=== PATIENT | female | born 1965 | race Caucasian/White ===

== ENCOUNTER → 2016-06-17 | Day surgery (SDC) | payer BC ==
[~2016-06-17] VITALS: Ht 170.2 cm; Wt 64.4 kg
[2016-06-17] VITALS (15 sets, daily range): BP systolic 114–148; BP diastolic 61–86
[~2016-06-17] MED LIST: D5 1/2NS 1,000 ML IV SCH; Dexamethasone 4mg/ml vial ONE; Glycopyrrolate 0.2mg/ml 1ml Vial ONE; HYDROmorphone 1mg/ml Carpuject SUBQ PRN; Hydromorphone 0.5mg/0.5ml inj IVP PRN; LR 1000ml ONE; Midazolam 2mg/2ml Inj ONE; NS Irrig 1000ml IRRIG ONE; NS Irrig 1000ml ONE; Neostigmine 1mg/ml 10ml Inj ONE; Norco 5mg/325mg tab ORAL PRN; Propofol 10mg/ml 20ml IV ONE; ProvayBlue 5mg/ml 10ml amp INJ ONE; Ropivacaine 5mg/ml Vial 20ml INJ ONE; Succinylcholine 20mg/ml 10ml vial ONE; Tylenol #3 tab (300mg/30mg) ORAL PRN; VITAMIN B125000 MCG PO; VITAMIN D250000 UNI1 ORAL; Zemuron 50mg/5ml Inj IV ONE; cefOXitin Sod 2 GM in D5W 110 ML IVPB ONE; fentaNYL 100 mcg/2 mL IV ONE
--- NOTE | 2016-06-17 08:03 | Pre-Procedure Note/Attestation ---
Pre-Procedure Note/Attestation Complete Prior to Procedure Planned Procedure: right Procedure Narrative: Right Salpingo-oophorectomy, Left salpingectomy, Possible Left Oophorectomy, D&C Indications for Procedure Pre-Operative Diagnosis: Right Ovarian Cyst Attestation I attest that I discussed the nature of the procedure; its benefits; risks and complications; and alternatives (and the risks and benefits of such alternatives ), prior to the procedure, with the patient (or the patient's legal sales representative). I attest that, if there was a reasonable possibility of needing a blood transfusion, the patient (or the patient's legal sales representative) was given the [place] [employer] [facility] standardized written summary, pursuant to the [place] Blood Safety Act ([place] Health and Safety Code # 1645, as amended). I attest that I re-evaluated the patient just prior to the surgery and that there has been no change in the patient's H&P, except as documented below:NONE JANNETTE ZAFAR Jun 17, 2016 08:03
--- NOTE | 2016-06-17 08:15 | Anethesia Preoperative Eval ---
Anesthesia Pre-op PMH/ROS General Date of Evaluation: Jun 17, 2016 Time of Evaluation: 07:30 Anesthesiologist: DESTINY ASA Score: ASA 2 Mallampati Score Class I : Soft palate, uvula, fauces, pillars visible Class II: Soft palate, uvula, fauces visible Class III: Soft palate, base of uvula visible Class IV: Only hard plate visible Mallampati Classification: Class II Surgeon: CHARISMA Diagnosis: OVARIAN CYST Surgical Procedure: LAP OOPHERECTOMY BILAT Anesthesia History: none Family History: no anesthesia problems Allergies: Coded Allergies: PINEAPPLE (Verified Allergy, Mild, 02/02/11) No Known Allergies (Verified , 02/03/11) Medications: see eMAR Past Medical History Cardiovascular: Denies: CAD, HTN, GA, arrhythmia, other, valve dz Pulmonary: Denies: COPD, [place], asthma, other Neurologic/Psychiatric: Denies: CVA, TIA, dementia, depression/anxiety, other Endocrine: Denies: DM, hypothyroidism, other, steroids HEENT: Denies: [place] (L), [place] (R), cataract (L), cataract (R), glaucoma, other Hematology/Immune: 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 Exam Physician Exam Last Vital Signs Date Time Temp Pulse Resp B/P Pulse Ox O2 Delivery O2 Flow Rate FiO2 06/17/16 06:23 97.4 18 148/86 100 Room Air Constitutional: NAD Neurologic: CN 2-12 intact Cardiovascular: RRR Respiratory: CTA Gastrointestinal: S/NT/ND Airway Exam Mallampati Score: Class II MO: full ROM: full Teeth: intact Dentures: no lower, no upper Anesthesia Pre-op A/P Risk Assessment & Plan Assessment: ASA2 Plan: GA PT TO RECEIVE FFP PRIOR TO INCISION Status Change Before Surgery: No Pre-Antibiotics Drug: SEVERE PCN ALLERGY Given Within 1 Hr of Incision: JARROD Esparza M.D. Jun 17, 2016 08:15
--- NOTE | 2016-06-17 08:17 | Immediate Post-Op Evaluation ---
Immediate Post-Op Evalulation Immediate Post-Op Evalulation Procedure: lap oopherectomy d&C Date of Evaluation: Jun 17, 2016 IV Fluids: 1100 Blood Products: FFP 250 CC Nausea: No Vomiting: No Patient Status: awake, patent, none Hydration Status: adequate Drug: SEVERE PCN ALLERGY Given Within 1 Hr of Incision: No JARROD DIXON M.D. Jun 17, 2016 08:17
--- NOTE | 2016-06-17 08:18 | 48 Hour Post Anesthesia Eval ---
Post Anesthesia Evaluation Procedure: lap oopherectomy d&C Date of Evaluation: Jun 17, 2016 Airway: patent Nausea: No Vomiting: No Hydration Status: adequate Cardiopulmonary Status: WNL Mental Status/LOC: patient returned to baseline Follow-up care needed: ready to discharge JARROD DIXON M.D. Jun 17, 2016 08:18
--- NOTE | 2016-06-17 10:04 | Brief Operative Note ---
Immediate Post Operative Note Operative Note Pre-op Diagnosis: Right Ovarian Cyst Procedure: Right BSO, Left Salpingectomy, Right Bowel Adhesiolysis, Frozen Section, Pelvic Washings, D&C Post-op Diagnosis: same as pre-op plus - Right Bowel Adhesions Surgeon: Jannette Zafar MD Anesthesiologist: Huang Roche MD Anesthesia: general Specimen: yes Complications: none Condition: stable Estimated Blood Loss: none Drains: none Implant(s) used?: No - Right Tube and Ovary, Left Tube, Endometrial Curettage, Endocervical Curettage JANNETTE ZAFAR Jun 17, 2016 10:04
--- NOTE | 2016-06-25 15:48 | Operative Note - Dictated ---
DATE OF OPERATION: 06/17/2016 PREOPERATIVE DIAGNOSIS: Postmenopausal right ovarian cyst. POSTOPERATIVE DIAGNOSIS: Postmenopausal right ovarian cyst. PROCEDURE PERFORMED: Right salpingo-oophorectomy and left salpingectomy. SURGEON: Trey Logan M.D. ANESTHESIOLOGIST: Dr. Huang Roche. ANESTHESIA: General endotracheal. PROCEDURE IN DETAIL: After all the appropriate consents were signed, the patient was brought to the operating room, placed on the table in supine position. General endotracheal anesthesia was induced without complication. The patient was then placed in the dorsal lithotomy position. Perineum, vagina, and abdomen were prepped and draped in usual fashion for the procedure. Vaginal procedure we will do the first, with dilation of cervix and endometrial and endocervical curettage were perform. Both endometrium and endocervical specimen was submitted to pathology for evaluation. At this time, uterine manipulator was placed and the patient was now evaluated in the abdominal area. The abdominal incision was made. Veress needle was placed through the umbilicus and the abdomen was insufflated with 15 mmHg. The procedure then continued with placement of a 10 mm trocar in the umbilicus and the abdominal contents were visualized with the laparoscope. Two additional trocars were placed in the lower abdomen. At this time, the procedure continued with evaluating of the right adnexa. There was a cystic structure on the right side within the ovary itself. The left side was visualized and was within normal limits. The upper abdomen was examined and was found to be normal. Appendix was identified and was found to be normal. At this time, the tube and ovary on the right side were grasped and elevated and infundibulopelvic ligament was cauterized. The procedure continued with cauterization and cutting out the ligament until the utero-ovarian ligament was reached. The tube itself was transected at its insertion in the uterus and the tube was removed along with the ovary on the right side. The tubo-ovarian complex was placed in the laparoscopic traction bag and removed in its entirety without filling the contents of such. The procedure then continued with lower limb elevating the left tube and ovary. The tube was isolated and bipolar cauterization was undertaken to fully separate the tube away from the ovary and the mesosalpinx was transected. The tubal insertion into the uterus was also transected and the entire tube was removed in its entirety. The ovary on the left side was within normal limits. At this time, all the operative sites were fully visualized, complete hemostasis was noted at all the operative site. An additional bipolar coagulation was applied to all the operative areas. At this time, trocars were removed under direct visualization with the laparoscope. The puncture sites were visualized and were found to be hemostatic. The trocar was removed. The laparoscope was removed last from the umbilical incision assuring that the puncture was fully hemostatic. At this time, 0 Vicryl suture was used to close the fascial layer and 4-0 Vicryl was used to close the skin. The incisions were covered with Steri-Strips and benzoin. The patient was placed in the supine position and awakened from general anesthesia. She was transferred to the recovery room in excellent condition. Trey Logan M.D. DR: KAREN JOB#: [id number] CC:
== END | disposition home or self-care (01) ==
LOC: SUR 05:39
DX: D27.0 Benign neoplasm of right ovary (principal); N83.8 Other noninflammatory disorders of ovary, fallopian tube and broad ligament; N84.0 Polyp of corpus uteri; G43.909 Migraine, unspecified, not intractable, without status migrainosus; D68.1 Hereditary factor XI deficiency; D66 Hereditary factor VIII deficiency; Z88.0 Allergy status to penicillin; Z91.018 Allergy to other foods; Z78.0 Asymptomatic menopausal state
CPT/HCPCS: 36415; 58120; 58661; 85730; 86900; 86901; 86927; J0330; J1100; J1170; J2250; J2405; J2704; J2710; J2795; J3010; J7120; 94003; 94150